=== PATIENT | female | born 1985 | race Caucasian/White ===

== ENCOUNTER 2020-02-15 20:26 | Emergency (ER) | payer OTHER ==
[2020-02-15] MEDS ORDERED: IBUPROFEN 800 MG TABLET PO ONE (22:17)
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
[2020-02-15 23:17] VITALS: BP 119/66
== END 2020-02-15 23:20 | disposition home or self-care (01) ==
LOC: ER 20:26
DX: M25.532 Pain in left wrist (principal); V49.9XXA Car occupant (driver) (passenger) injured in unspecified traffic accident, initial encounter
CPT/HCPCS: 99283

== ENCOUNTER → 2020-03-09 | Day surgery (SDC) | payer OTHER ==
--- NOTE | 2020-03-09 16:13 | RADIOLOGY REPORT (SQ) ---
EXAM DESCRIPTION: FLUORO/NEEDLE PLACEMENT; ARTHRO WRIST INJECTION IMAGES COMPLETED DATE/TIME: 03/09/2020 3:47 pm REASON FOR STUDY: S63.502A UNSPECIFIED SPRAIN OF LEFT WRIST, INITIAL ENCOUNTER S63.502A UNSPECIFIED SPRAIN OF LEFT WRIST, INITIAL ENCOUNTER COMPARISON: None. FLUOROSCOPY TIME: 41 seconds 2 images saved to PACS. LIMITATIONS: None. PROCEDURE: Procedure, risks, benefits and alternatives explained to patient who then gave written co nsent. The left wrist was marked and a time-out was called for correct marking verification. Radioca rpal site marked using fluoroscopic guidance. Wrist prepped and draped using sterile technique. Loc al anesthesia achieved using 1% lidocaine injection. Hypodermic needle introduced into the joint spa ce under direct fluoroscopic visualization. Non-ionic contrast instilled to confirm intra-articular p osition. Dilute gadolinium solution then injected. Needle removed and entry site covered with steril e bandage. No immediate complications noted. TECHNIQUE: Digital images acquired during fluoroscopy and stored on PACS. Patient immediately take n to the MR suite for additional imaging. INJECTION LOCATION: Left wrist CONTRAST TYPE AND AMOUNT: 0.5 mL Omnipaque 300, 1.5 mL dilute ProHance. IMPRESSION: SUCCESSFUL NEEDLE PLACEMENT AND INJECTION FOR LEFT WRIST MR ARTHROGRAM. COMMENT: None Quality ID #[id number]: Final reports for procedures using fluoroscopy that document radiation exposure abhijit christel, or exposure time and number of fluorographic images (if radiation exposure indices are not avail able) TECHNICAL DOCUMENTATION: JOB ID: [id number] 2010 [employer]- All Rights Reserved Reading location - IP/workstation name: [email or web address] [id number]
--- NOTE | 2020-03-09 16:13 | RADIOLOGY REPORT (SQ) ---
EXAM DESCRIPTION: FLUORO/NEEDLE PLACEMENT; ARTHRO WRIST INJECTION IMAGES COMPLETED DATE/TIME: 03/09/2020 3:47 pm REASON FOR STUDY: S63.502A UNSPECIFIED SPRAIN OF LEFT WRIST, INITIAL ENCOUNTER S63.502A UNSPECIFIED SPRAIN OF LEFT WRIST, INITIAL ENCOUNTER COMPARISON: None. FLUOROSCOPY TIME: 41 seconds 2 images saved to PACS. LIMITATIONS: None. PROCEDURE: Procedure, risks, benefits and alternatives explained to patient who then gave written co nsent. The left wrist was marked and a time-out was called for correct marking verification. Radioca rpal site marked using fluoroscopic guidance. Wrist prepped and draped using sterile technique. Loc al anesthesia achieved using 1% lidocaine injection. Hypodermic needle introduced into the joint spa ce under direct fluoroscopic visualization. Non-ionic contrast instilled to confirm intra-articular p osition. Dilute gadolinium solution then injected. Needle removed and entry site covered with steril e bandage. No immediate complications noted. TECHNIQUE: Digital images acquired during fluoroscopy and stored on PACS. Patient immediately take n to the MR suite for additional imaging. INJECTION LOCATION: Left wrist CONTRAST TYPE AND AMOUNT: 0.5 mL Omnipaque 300, 1.5 mL dilute ProHance. IMPRESSION: SUCCESSFUL NEEDLE PLACEMENT AND INJECTION FOR LEFT WRIST MR ARTHROGRAM. COMMENT: None Quality ID #[id number]: Final reports for procedures using fluoroscopy that document radiation exposure abhijit christel, or exposure time and number of fluorographic images (if radiation exposure indices are not avail able) TECHNICAL DOCUMENTATION: JOB ID: [id number] 2010 [employer]- All Rights Reserved Reading location - IP/workstation name: [email or web address] [id number]
--- NOTE | 2020-03-09 16:40 | RADIOLOGY REPORT (SQ) ---
EXAM DESCRIPTION: MRI LT UPPER JOINT WITH IMAGES COMPLETED DATE/TIME: 03/09/2020 4:14 pm REASON FOR STUDY: S63.502A UNSPECIFIED SPRAIN OF LEFT WRIST, INITIAL ENCOUNTER S63.502A UNSPECIFIED SPRAIN OF LEFT WRIST, INITIAL ENCOUNTER COMPARISON: None. TECHNIQUE: Left wrist post-arthrogram imaging includes T1 and T1 and T2 fat sat sequences. LIMITATIONS: Motion artifact. FINDINGS: JOINT DISTENSION: Adequate. No loose body. BONE MARROW: No alteration of signal to suggest marrow replacement or edema. No occult fracture. No l arge osteophytes. CARPAL ALIGNMENT AND ARTICULATION: Normal congruity of sigmoid notch at level of distal ruj without p ositive or negative ulnar variance. Normal capitolunate angle. No widening of scapholunate articulati on. SCAPHOLUNATE LIGAMENT: Without tear. No contrast in middle carpal compartment. LUNATO-TRIQUETRAL LIGAMENT: Without tear. No contrast in middle carpal compartment. TFC COMPLEX: Radial and ulnar attachments normal. Meniscus intact. Extensor carpi ulnaris tendon norm al without tendinopathy. No contrast in distal RUJ. EXTRINSIC LIGAMENTS AND DISTAL RADIO-ULNAR JOINT: Dorsal and volar distal RUJ ligaments intact withou t subluxation of the distal ulna with respect to the radius. 1-6 EXTENSOR COMPARTMENTS: Normal. Specifically no tendinopathy of the abductor pollicis longus or ex tensor pollicis brevis to suggest de Quervains syndrome. CARPAL TUNNEL AND MEDIAN NERVE: Normal volume and morphology of carpal tunnel proximal at the level o f the radiocarpal joint and distally at the hook of the hamate. No thickening or signal alteration of median nerve. OTHER: No other significant finding. IMPRESSION: Limitations due to motion artifact. No acute findings. TECHNICAL DOCUMENTATION: JOB ID: [id number] 2010 [employer]- All Rights Reserved Reading location - IP/workstation name: [email or web address]
== END ==
LOC: RAD 14:41
PROVIDERS: ATTEND Orthopaedic Surgery
DX: S63.502A Unspecified sprain of left wrist, initial encounter (principal); X58.XXXA Exposure to other specified factors, initial encounter
CPT/HCPCS: 25246; 77002